=== PATIENT | female | born 1970 | race Two or more races ===

== ENCOUNTER → 2016-10-29 | Outpatient (CLI) | payer BC ==
--- NOTE | 2016-10-29 17:57 | DX ---
Chest, Two Views at 1021 hours History: Medial left clavicular osseous mass. Comparison: None. Findings: Cardiac silhouette is within normal range. Bilateral clavicles demonstrate no definite evid ence of osseous mass. No pneumonia, congestive heart failure, pleural effusion, or pneumothorax. Impression: 1. No acute pulmonary disease. 2. Consider CT chest imaging if there is continued clinical concern.
== END ==
LOC: FLAB 10:18
PROVIDERS: ATTEND Family Medicine
DX: R22.1 Localized swelling, mass and lump, neck (principal)